=== PATIENT | female | born 2000 | race Caucasian/White ===

== ENCOUNTER 2023-04-09 05:48 | Observation (INO) | payer BC ==
[2023-04-09] MEDS ORDERED: Dexmedetomidine 200 MCG/2 ML VIAL ONE (06:33)
[2023-04-09] MEDS ORDERED: SUGAMMADEX SODIUM 200 MG/2 ML VIAL ONE (06:33)
[2023-04-09] MEDS ORDERED: Fentanyl 250 MCG/5 ML VIAL ONE (06:41)
[2023-04-09] MEDS ORDERED: Midazolam HCl 2 mg/2 ml Vial ONE (06:41)
[2023-04-09] MEDS ORDERED: Dexamethasone 20 MG/5 ML VIAL ONE (06:41)
[2023-04-09] MEDS ORDERED: Lidocaine 1% PF 5 ML VIAL ONE (06:41)
[2023-04-09] MEDS ORDERED: Glycopyrrolate 0.2 MG/ML 5 ML SYRINGE ONE (06:41)
[2023-04-09] MEDS ORDERED: Ondansetron PF 4 MG/2 ML Vial ONE (06:41)
[2023-04-09] MEDS ORDERED: PROPOFOL 20 ML ONE (06:41)
[2023-04-09] MEDS ORDERED: Ondansetron ODT 4 MG TAB PO PRN (07:21)
[2023-04-09] MEDS ORDERED: Ondansetron PF 4 MG/2 ML Vial IVP PRN (07:21)
[2023-04-09] MEDS ORDERED: CEFAZOLIN 1 GM VIAL ONE (07:22)
[2023-04-09] MEDS ORDERED: Lidocaine 1% w/Epinephrine 1:100K 20 ML VIAL ONE (08:03)
[2023-04-09] MEDS ORDERED: fentaNYL 50 mcg/mL 1 mL Vial ONE (09:36)
[2023-04-09] MEDS: Mupirocin 2% Ointment 22 GM Tube TOP SCH ×3 (11:00→21:17)
[2023-04-09] MEDS: Acetaminophen W/ Codeine 5 ML UDCUP PO PRN ×3 (12:19→20:46)
[2023-04-09 18:53] VITALS: BMI 42.7
[2023-04-10] MEDS: Acetaminophen W/ Codeine 5 ML UDCUP PO PRN ×3 (00:45→09:39)
[2023-04-10] MEDS ORDERED: Levothyroxine Sodium 125 MCG TAB PO SCH (06:00)
[2023-04-10] MEDS: Mupirocin 2% Ointment 22 GM Tube TOP SCH (08:07)
[2023-04-10 09:05] VITALS: BP 116/57; TEMP 97.9
== END 2023-04-10 10:21 | disposition home or self-care (01) ==
LOC: CSHSDC 05:48 → CSHTELE 07:21
PROVIDERS: ADMIT Otolaryngology Otolaryngic Allergy; ATTEND Otolaryngology Otolaryngic Allergy
PROC: 09Q Ear, Nose, Sinus, Repair (ICD-10-PCS; principal; 2023-04-09)
PROC: 0CBN0ZZ Excision of Uvula, Open Approach (ICD-10-PCS; 2023-04-09)
PROC: 0CBQ0ZZ Excision of Adenoids, Open Approach (ICD-10-PCS; 2023-04-09)
PROC: 0CBPXZZ Excision of Tonsils, External Approach (ICD-10-PCS; 2023-04-09)
DX: S01.302A Unspecified open wound of left ear, initial encounter (principal); S01.301A Unspecified open wound of right ear, initial encounter; J35.3 Hypertrophy of tonsils with hypertrophy of adenoids; G47.33 Obstructive sleep apnea (adult) (pediatric); K13.79 Other lesions of oral mucosa; X58.XXXA Exposure to other specified factors, initial encounter
CPT/HCPCS: 88300; 88302; 88304; 94760; J0690; J1100; J2250; J2405; J2704; J3010